=== PATIENT | female | born 1965 | race Caucasian/White ===

== ENCOUNTER 2019-03-21 10:29 | Outpatient (CLI) | payer OTHER | END 2019-03-21 10:37 | disposition home or self-care (01) | LOC: RAD 10:29 | DX: R05 Cough (principal) ==

== ENCOUNTER 2021-11-06 10:44 | Outpatient (CLI) | payer OTHER | END 2021-11-06 10:55 | disposition home or self-care (01) | LOC: RAD 10:44 | PROVIDERS: ATTEND Obstetrics & Gynecology | DX: R05.9 Cough, unspecified (principal) ==

== ENCOUNTER → 2021-11-10 12:05 | Outpatient (CLI) | payer OTHER | END | disposition home or self-care (01) | LOC: LAB 12:05 → EKG 12:05 | PROVIDERS: ATTEND Specialist | DX: Z01.810 Encounter for preprocedural cardiovascular examination (principal) ==

== ENCOUNTER 2022-06-10 11:01 | Outpatient (CLI) | payer OTHER | END 2022-06-10 11:13 | disposition home or self-care (01) | LOC: RAD 11:01 → MRI 11:01 → RAD 11:13 | PROVIDERS: ATTEND Orthopaedic Surgery | DX: M25.562 Pain in left knee (principal); M23.92 Unspecified internal derangement of left knee | CPT/HCPCS: 73718 ==